=== PATIENT | female | born 1975 | race Caucasian/White ===

== ENCOUNTER 2019-04-11 19:03 | Inpatient (IN) ==
[2019-04-11] MEDS ORDERED: NS 1,000 ML IV ONE ×2 (20:18→22:18)
[2019-04-11] MEDS ORDERED: TORADOL IV ONE (20:18)
[2019-04-11 20:41] LABS: BASO# 0.03 X1000 (0.0-0.2); BASO% 0.2 % (0.0-0.8); EOS# 0.15 X1000 (0.0-0.7); EOS% 1.1 % (0.0-10.0); HEMATOCRIT 41.7 % (37.0-47.0); HEMOGLOBIN 14.8 g/dL (12.0-16.0); IMM GRAN# 0.04 X1000 (0.0-0.04); IMM GRAN% 0.3 % (0.0-0.5); LYMPH# 3.21 X1000 (1.2-3.4); LYMPH% 23.7 % (20.5-51.1); MCH 33.7 PG (27-31); MCHC 35.5 g/dL (33-37); MONO# 0.93 X1000 (0.11-0.59); MONO% 6.9 % (1.7-9.3); MPV 12.3 FL (7.4-10.4); NEUT# 9.16 X1000 (1.4-6.5); NEUT% 67.8 % (42.2-75.2); PLT 219 X1000 (130-400); RBC 4.39 XMIL (4.2-5.4); RDW 12.1 % (11.5-14.5); WBC 13.52 X1000 (4.8-10.8)
[2019-04-11 21:06] LABS: AGAP 18; ALBUMIN 5.1 g/dL (3.5-5.0); ALKALINE PHOSPHATASE 73 U/L (32-104); BUN 9 mg/dL (8-22); CALCIUM 10.3 mg/dL (8.8-10.2); CHLORIDE 101 mmol/L (98-107); COSMO 281; CREATININE 0.8 mg/dL (0.5-0.9); ESTIMATED GFR > 60; GLUCOSE 226 mg/dL (70-104); GOT 20 U/L (10-30); GPT 28 U/L (10-36); POTASSIUM 3.8 mmol/L (3.5-5.1); SODIUM 138 mmol/L (136-145); TCO2 20 mmol/L (25-35); TOTAL PROTEIN 7.8 g/dL (6.3-8.3)
[2019-04-11 21:15] LABS: BILIRUBIN URINE NEGATIVE (NEGATIVE); BLOOD URINE NEGATIVE (NEGATIVE); CLARITY CLEAR (CLEAR); COLOR YELLOW; GLUCOSE URINE NEGATIVE (NEGATIVE); KETONE URINE NEGATIVE (NEGATIVE); LEUKOCYTES URINE NEGATIVE (NEGATIVE); NITRITE URINE NEGATIVE (NEGATIVE); PH URINE 6.5; PROTEIN URINE NEGATIVE (NEGATIVE); SP GRAVITY URINE 1.005; UROBILINOGEN URINE NORMAL
[2019-04-11 21:16] LABS: URINE BACTERIA NEGATIVE /HFP; URINE EPITHELIAL CELLS <10 /HPF (<10); URINE RBC <10 /HPF (<10); URINE SOURCE CLEAN CATCH; URINE WBC <10 /HPF (<10)
[2019-04-11] MEDS ORDERED: CLINDAMYCIN 600 MG/D5W 600 MG/50 ML IVPB IV ONE (21:24)
--- NOTE | 2019-04-11 21:25 | PROVIDER DOCUMENTATION ---
This chart was entered by Cony Torrez Scribe, acting as scribe for Bryan Maya MD. HPI-General Adult - General Chief Complaint: Facial Pain Stated Complaint: FACE SWELLING Time Seen by Provider: 04/11/19 19:52 Source: patient Allergies/Adverse Reactions: Patient Allergies Allergy/AdvReac Type Severity Reaction Status Date / Time Sulfa (Sulfonamide Allergy SWELLING Verified 03/25/19 19:12 Antibiotics) [Sulfa(Sulfonamide Antibiotics)] Home Medications: Home Medication List Medication Instructions Recorded Confirmed Last Taken Type Atenolol 50 mg PO DAILY 02/26/12 04/11/19 04/11/19 History Fluticasone 50 Mcg Nasal [place] 2 spray JOSELIN DAILY #1 bottle 06/22/17 04/11/19 Unknown Rx [Flonase] Albuterol Sulfate 2.5 mg IH Q4H PRN PRN #30 vial.neb 06/20/18 04/11/19 Unknown Rx Loratadine [Claritin] 10 mg PO DAILY #20 cap 03/25/19 04/11/19 04/11/19 Rx Tizanidine [Zanaflex] 4 mg PO BID 03/25/19 04/11/19 04/11/19 History Alprazolam 1 mg PO 04/11/19 04/11/19 History - History of Present Illness -Gen Adult Nature of Presenting Problems: Pt is a 44 yof who presents to the ED with a complaint of facial pain. Pt states that she cannot eat due to the swelling on the left side of her face. Pt reports that the swelling began yesterday evening. Pt reports fever, ear pain, and chills. Pt reports lack of sleep due to pain. Pt denies nausea, vomiting, and dizziness. Location of Pain/Injury: reports: face (left side), back (lower right) Pain Radiation: reports: no radiation Quality of Pain: reports: aching Severity: reports: moderate Onset/Duration: reports: 24 hours ago Timing: reports: still present, getting worse Context/Activities at Onset: reports: none Modifying Factors: improves with: nothing Associated Symptoms: reports: back/neck pain (lower right back , left side of neck), EENT symptoms (left ear pain), fever/chills, loss of appetite Similar Symptoms Previously?: No Recently seen or treated by another doctor?: Yes Review of Systems - Adult - REVIEW OF SYSTEMS - ADULT Constitutional: reports: see HPI, chills, fever Eyes: reports: no symptoms reported Ears, Nose, Mouth & Throat: reports: ear pain (left ear), other (facial swelling pain around the ear neck pain) Cardiovascular: reports: no symptoms reported Respiratory: reports: no symptoms reported Gastrointestinal: reports: no symptoms reported Genitourinary: reports: no symptoms reported Musculoskeletal: reports: back pain (lower right), neck pain Integumentary: reports: no symptoms reported Neurological: reports: no symptoms reported Psychiatric: reports: no symptoms reported Endocrine: reports: no symptoms reported Hematologic/Lymphatic: reports: no symptoms reported Allergic/Immunologic: reports: no symptoms reported All Other Systems: Reviewed and Negative Past History - Adult - PAST MEDICAL HISTORY-ADULT Review of Records: reports: Old Records Reviewed, Nursing Assessment Review, Medications Reviewed, Social history reviewed & non-contributory. Major Childhood Illnesses: reports: denies history Cardiovascular: reports: HTN Respiratory: reports: asthma Gastrointestinal: reports: denies history Obstetrical/Gynecological: reports: denies history Genitourinary: reports: denies history Musculoskeletal: reports: denies history Neurological: reports: denies history Psychiatric: reports: anxiety, depression Endocrine/Immune: reports: denies history Other Conditions: reports: denies history - PRIOR SURGERIES/PROCEDURES Surgical/Procedure History: reports: appendectomy, hysterectomy, other (tubal ligation) - IMMUNIZATION STATUS Childhood Immunizations: See Nurse Assessment Flu Vaccine: See Nurse Assessment - FAMILY HISTORY Family History: reviewed, not pertinent - SOCIAL HISTORY Smoking: cigarettes, less than 1 pack/day Provider spent 3-5 mins advising pt. on dangers of tobacco.: Discussed manners to quit use, and f/u contacts for add'l counseling. Substance Use: denies Alcohol Use Frequency: rarely Living Situation: family Physical Exam-General - PHYSICAL EXAM-ADULT Initial Vital Signs Reviewed: Yes - CONSTITUTIONAL General Appearance: alert. negative: lethargic, slow to respond - EYES Eyes: PERRL/EOMI, sunken eyes. negative: sclera injected, scleral icterus - HEAD, EARS, NOSE, MOUTH & THROAT HENMT: normocephalic/atraumatic, moist mucous membranes, other (left parotid gland stensen duct tender and opening can be seen but no discharge). negative: normal ENT inspection - NECK Neck: non-tender - RESPIRATORY Respiratory: chest non-tender, lungs clear, normal breath sounds. negative: crackles, rhonchi, wheezing - CARDIOVASCULAR Cardiovascular: normal peripheral pulses, regular rate, rhythm, no edema, no gallop, no murmur, bradycardia - GASTROINTESTINAL (ABDOMEN) Abdominal Exam: normal bowel sounds, non tender, soft. negative: guarding, rebound - MUSCULOSKELETAL Back Exam: no CVA tenderness, other (right lower side tenderness) Extremity: normal range of motion, non-tender, normal gait, normal inspection - SKIN Integumentary: normal color, normal turgor, warm/dry. negative: ecchymosis, erythema - NEUROLOGIC Neurologic: grossly normal - PSYCHIATRIC Psych/Mental Status: normal mood/affect, normal thought content, normal thought process, oriented x 3 Progress - PLAN OF CARE/RESULTS Progress/Plan/Lab Results: Vital Signs - 8 hr 04/11/19 19:21 Temperature 99.5 F Pulse Rate 100 H Respiratory Rate 18 Blood Pressure 133/94 O2 Sat by Pulse Oximetry 96 Laboratory Results - last 24 hr 04/11/19 19:30 Group A Strep Rapid NEGATIVE Orders Category Date Time Status CT NECK W/CONTRAST [CT] Stat Exams 04/11/19 20:11 Ordered BLOOD CULTURE [BLDCUL] Stat Lab 04/11/19 20:17 Uncollected CBC WITH ELECTRONIC DIFF [HEME] Stat Lab 04/11/19 20:16 Uncollected CMP [COMPREHENSIVE METABOLIC PANEL] [CHEM] Stat Lab 04/11/19 20:16 Uncollected LACTATE, PLASMA [CHEM] Stat Lab 04/11/19 20:17 Uncollected UA NIMS W/REFLEX CULT PL [URINALYSIS] Stat Lab 04/11/19 20:20 Uncollected strep [DIRECT STREP PL] Stat Lab 04/11/19 19:30 Completed 0.9% Sodium Chloride Inj [Ns] 1,000 ml Med 04/11/19 20:18 Active IV 999 mls/hr Ketorolac [Toradol] Med 04/11/19 20:18 Discontinued 30 mg IV NOW ONE Result Diagrams: 04/11/19 20:28 04/11/19 20:28 - CONSULTS/PCP/HOSPITALIST Notification #1 *Consult/PCP/Hospitalist*: D/W Dr Rodriguez Time Discussed: 22:14 Consult Disposition: Admit (recommended zosyn, toradol 30 mg iv Q6 and IVF's) Departure - Departure Date of Disposition Decision: 04/11/19 Time of Disposition Decision: 22:16 DIAGNOSIS: Parotitis, acute Disposition: ADMITTED INPATIENT 09 Certified Medical Emergency: Emergent Condition: Stable Referrals and Follow-Ups: Erik Yang MD [Primary Care Provider] - - Critical Care Note This patient required my direct & personal management of CC.: No Attestation - Physician/ DEVORA Attestation Patient care was provided by Advanced Practice Provider:: No The physician spent face to face time with patient:: Yes Advanced Practice Provider documentation review:: Supervising physician onsite and consulted in the evaluation and care of this patient. The physician did have a face to face encounter with the patient. This chart was documented by the indicated scribe, (Cony Torrez Scribe) and accurately reflects the services I performed and decisions made by me, Bryan Maya MD, as attested by the provider's signature.
--- NOTE | 2019-04-11 21:48 | Diag Imaging Result Doc PS360 ---
EXAM: CT NECK W/CONTRAST HISTORY: L parotid swelling TECHNIQUE: CT neck with intravenous contrast COMPARISON: None. FINDINGS: The left parotid gland is mildly larger than the right. Minimal inflammation in the adjacent subcutaneous fat. The submandibular glands are symmetric. No mass. No sinus opacification and no air-fluid levels. No precervical soft tissue swelling. Normal thyroid gland and larynx. There are small lymph nodes scattered in the neck. IMPRESSION: Inflammation of the left parotid gland This exam was performed using automated exposure control, adjustment of mA or kV according to patient size, and/or use of iterative reconstruction technique. Electronically signed by Rl Alvarez 04/11/2019 9:45 PM
[2019-04-11] MEDS ORDERED: PHENERGAN IV ONE (22:02)
[2019-04-11] MEDS ORDERED: SODIUM CHLORIDE 0.9% INJ ONE (22:02)
[2019-04-11] MEDS ORDERED: ZOSYN 3.375 GM in NS 50 ML IV ONE (22:18)
[2019-04-11] MEDS ORDERED: NS 1,000 ML ONE (22:38)
[2019-04-11] MEDS: ZOSYN 3.375 GM in NS 50 ML IV SCH (23:49)
[2019-04-12] MEDS ORDERED: FLU VACCINE IM ONE (00:08)
[2019-04-12] MEDS ORDERED: PNEUMOVAX 23 IM ONE (00:11)
[2019-04-12] MEDS: NICODERM PATCH TD PRN (00:27)
[2019-04-12] MEDS: TORADOL IV PRN ×2 (02:21→08:57)
[2019-04-12] MEDS: ZOSYN 3.375 GM in NS 50 ML IV SCH ×4 (04:21→22:35)
[2019-04-12] MEDS ORDERED: VANCOMYCIN IV PER PHARMACY MISC SCH (09:15)
[2019-04-12] MEDS ORDERED: ZOFRAN IV PRN (09:15)
[2019-04-12] MEDS ORDERED: TYLENOL PO PRN (09:15)
[2019-04-12] MEDS ORDERED: NS 1,000 ML IV ONE (09:20)
[2019-04-12] MEDS ORDERED: ALBUTEROL NEB INH PRN (09:20)
[2019-04-12] MEDS ORDERED: VANCOMYCIN 1,600 MG in NS 250 ML IV ONE (10:00)
[2019-04-12] MEDS: FLONASE NAS SCH (10:43)
[2019-04-12] MEDS: LOVENOX SUBQ SCH (10:46)
[2019-04-12] MEDS: XANAX PO SCH ×3 (10:46→20:49)
[2019-04-12] MEDS: NS 1,000 ML IV SCH ×3 (10:46→22:36)
[2019-04-12] MEDS: CLARITIN PO SCH (10:46)
[2019-04-12] MEDS: TENORMIN PO SCH (10:46)
[2019-04-12] MEDS: ZANAFLEX PO SCH ×2 (10:47→20:50)
[2019-04-12 12:06] LABS: UR AMPHETAMINES QUAL NONE DETECTED (NONE DETECT); UR BARBITUATES QUAL NONE DETECTED (NONE DETECT); UR BENZODIAZEPIN QUAL PRESUMPTIVE POSITIVE (NONE DETECT); UR CANNABINOIDS QUAL NONE DETECTED (NONE DETECT); UR COCAINE QUAL NONE DETECTED (NONE DETECT); UR METHADONE QUAL NONE DETECTED (NONE DETECT); UR METHAMPHETAMINE QUAL NONE DETECTED (NONE DETECT); UR OPIATES QUAL NONE DETECTED (NONE DETECT); UR OXYCODONE QUAL NONE DETECTED (NONE DETECT); UR PCP QUAL NONE DETECTED (NONE DETECT); UR PROPOXYPHENE QUAL NONE DETECTED (NONE DETECT); UR TCA QUAL NONE DETECTED (NONE DETECT)
--- NOTE | 2019-04-12 14:41 | HISTORY AND PHYSICAL ---
PRIMARY CARE PROVIDER: Dr. Yang. CHIEF COMPLAINT: Left jaw pain. HISTORY OF PRESENT ILLNESS: Ms. Kanika Mckeon is a 44-year-old, female with a medical history of asthma, COPD, bronchitis, hypertension, anxiety, depression, arteriosclerotic heart disease, full teeth extraction, who also had a history of left parotid gland infection around 2 years ago where she was treated with antibiotics and pain medication. Now presents with swelling in the left jaw/neck area for 2 days. Left jaw, neck up to the ear is swollen. It is very tender to palpation. It is firm. Pain is 7/10 with pain that shoots into the ear and into the eye. She states it feels worse when she tries to eat. She presented to the emergency department here at [facility]. Head and neck CT that was performed which showed inflammation of the left parotid gland. Her white blood cell came back at 13,000. She has elevation in her lactate. She also has hyperglycemia. She was admitted for further treatment. Antibiotics consist of vancomycin and Zosyn. She did get a dose of clindamycin in the ER. PAST MEDICAL HISTORY: 1. Asthma/COPD. 2. Chronic bronchitis. 3. Hypertension. 4. Anxiety. 5. Chronic muscle spasms. 6. Depression. 7. Arteriosclerotic heart disease. 8. Degenerative bone disease. 9. Osteoarthritis. 10. Full teeth extraction 14+ years ago. 11. Gallstones. 12. 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 13. Parotid gland infection around 2 years ago. 14. Seasonal allergies. 15. Hypertriglyceridemia. 16. Newly diagnosed diabetes mellitus type 2. 17. In the past, she has had pancreatitis. SURGICAL HISTORY: 1. Full teeth extraction. 2. Total hysterectomy. 3. Appendectomy. SOCIAL HISTORY: One pack per day smoker for 20+ years. Drinks alcohol twice a year. No illicit drug use. Lives at home with her . FAMILY HISTORY: Father at 46 with an DC. Mother had heart disease, paternal grandmother had a stroke. Paternal grandfather had heart attack, stroke, and Parkinson's. Maternal grandmother stroke, heart attack, and Parkinson's. ALLERGIES: Sulfa. HOME MEDICATIONS: 1. Xanax 1 mg p.o. t.i.d. 2. Atenolol 50 mg p.o. daily. 3. Zanaflex 4 mg p.o. twice daily. 4. Albuterol every 4 hours p.r.n. 5. Loratadine 10 mg p.o. daily. 6. Flonase nasal daily. REVIEW OF SYSTEMS: Fourteen point review of systems are complete and all are negative except for those mentioned above in the HPI. PHYSICAL EXAMINATION: VITAL SIGNS: Temperature 97.4 degrees, heart rate 73, respiratory rate 16, blood pressure 132/72, O2 saturation 100% on room air. GENERAL: Ms. Kanika Mckeon is a 44-year-old, female. She is in no acute distress. She is able answer questions appropriately. HEENT: Atraumatic and normocephalic except for she does have swelling along the left side of her face into the jaw and into the neck. Pupils equal, round, and reactive to light. Extraocular movements intact. Mucous membranes are moist. She is without teeth. Oral airway is clean but swollen. NECK: Trachea midline. Swelling in the left side of the neck. CARDIOVASCULAR: S1, S2. Regular rate and rhythm. No rubs, gallops, or murmurs. No lower extremity edema. There are +2 dorsalis and radial pulses. Negative JVD or carotid bruits. PULMONARY: Clear to auscultate bilateral breath sounds. No accessory muscle use or work of breathing noted. GI: Soft, nontender, nondistended. Positive bowel sounds x4. EXTREMITIES: Moves all extremities equally with full range of motion. NEUROLOGIC: A and O x3. Follows commands. Sensory is intact. SKIN: Warm, dry, intact. LABORATORY DATA: White blood cells 13,000, hemoglobin 14, hematocrit 41, platelet count 219,000. Sodium 138, potassium 3.8, BUN 9, creatinine 0.8, glucose 226, calcium is 10. Bilirubin 0.50, AST 20, ALT 28, albumin 5.1. Serum lactate 3.6 on admission. It was up to 4.3 after that. Urinalysis negative. Urine drug screen positive for benzodiazepines. Strep negative. She had a hemoglobin A1c on March 14 with an A1c of 6. Her triglycerides on 03/14/2019 were 533, total cholesterol 155. IMAGING: Neck CT, inflammation of the left parotid gland. ASSESSMENT AND PLAN: 1. Sepsis, likely secondary to parotid gland infection. She is getting fluids and broad-spectrum antibiotics. 2. Left parotid gland inflammation, infection, parotiditis. Again, she is on broad-spectrum antibiotics and getting intravenous fluids. She does state that eating makes it worse but wants to continue on a regular diet. She is requesting for some pain medicine for that. We will do a lidocaine patch because she wanted something topical but she also has [place] ordered if she needs it. 3. Anxiety. Continue Xanax. 4. Seasonal allergies. Continue Flonase and Claritin. 5. Hypertension. Continue atenolol. 6. Newly diagnosed diabetes mellitus type 2. Hemoglobin A1c was 6.2 last month. We will do pattern blood glucoses, sliding scale insulin, and a diabetic diet. She will probably need something oral when she goes home. 7. Newly diagnosed hypertriglyceridemia. Her triglyceride levels were over 500. Total cholesterol levels were normal. Start her on fenofibrate. 8. Reported history of arteriosclerotic heart disease. No interventions noted. Again, she probably needs to be on aspirin and continue on the fenofibrate. We will add some aspirin. 9. Deep venous thrombosis prophylaxis. Lovenox. 10. History of reported asthma, chronic obstructive pulmonary disease, and chronic bronchitis. She had antibiotics. She was recently treated with doxycycline and Medrol Dosepak which she finished up a week ago. Apparently, she was taking that for her sinusitis as well. 11. Tobacco abuse. Cessation discussed. Dictated by LILI Treviño for Ronald Head MD Addendum: Patient seen and examined by myself. Agree with LILI note. It reflects my assessment and plan. Patient is being admitted to hospital for parotid gland infection. Will continue with Zosyn and Toradol. Will monitor patient closely. cc: LILI Treviño MD MTDD
[2019-04-12] MEDS: OFIRMEV 1000 MG/ISOTONIC SOLN 1,000 MG/100 ML BOTTLE IV SCH ×2 (14:46→20:45)
[2019-04-12] MEDS: PHENERGAN IV PRN (14:46)
[2019-04-12] MEDS: SODIUM CHLORIDE 0.9% INJ PRN (14:47)
[2019-04-12] MEDS: LIDODERM TOP SCH (14:53)
[2019-04-12] MEDS: TORADOL IV SCH ×2 (15:27→20:49)
[2019-04-12] MEDS: NORCO-7.5 PO PRN (20:49)
[2019-04-12] MEDS: AMBIEN PO SCH (20:49)
[2019-04-12] MEDS: TRICOR PO SCH (20:49)
[2019-04-12] MEDS: HUMULIN R (PARKWAY) SUBQ SCH (22:37)
[2019-04-13] MEDS: OFIRMEV 1000 MG/ISOTONIC SOLN 1,000 MG/100 ML BOTTLE IV SCH ×4 (02:49→21:02)
[2019-04-13] MEDS: TORADOL IV SCH ×4 (02:50→21:07)
[2019-04-13] MEDS: ZOSYN 3.375 GM in NS 50 ML IV SCH ×4 (04:38→21:47)
[2019-04-13] MEDS: VANCOMYCIN 1,200 MG in NS 250 ML IV SCH ×2 (05:16→23:43)
[2019-04-13 06:16] LABS: BASO# 0.02 X1000 (0.0-0.2); BASO% 0.3 % (0.0-0.8); EOS# 0.14 X1000 (0.0-0.7); EOS% 2.3 % (0.0-10.0); HEMATOCRIT 32.5 % (37.0-47.0); HEMOGLOBIN 10.9 g/dL (12.0-16.0); IMM GRAN# 0.01 X1000 (0.0-0.04); IMM GRAN% 0.2 % (0.0-0.5); LYMPH# 2.02 X1000 (1.2-3.4); LYMPH% 33.4 % (20.5-51.1); MCH 32.7 PG (27-31); MCHC 33.5 g/dL (33-37); MCV 97.6 FL (81-99); MONO# 0.59 X1000 (0.11-0.59); MONO% 9.8 % (1.7-9.3); MPV 12.1 FL (7.4-10.4); NEUT# 3.27 X1000 (1.4-6.5); PLT 145 X1000 (130-400); RBC 3.33 XMIL (4.2-5.4); RDW 11.9 % (11.5-14.5); WBC 6.05 X1000 (4.8-10.8)
[2019-04-13] MEDS: PHENERGAN IV PRN ×2 (06:55→18:58)
[2019-04-13] MEDS: NORCO-7.5 PO PRN ×2 (06:56→16:43)
[2019-04-13] MEDS: NICODERM PATCH TD PRN (06:57)
[2019-04-13] MEDS: HUMULIN R (PARKWAY) SUBQ SCH ×5 (06:57→21:05)
[2019-04-13 07:35] LABS: AGAP 12; ALBUMIN 3.6 g/dL (3.5-5.0); ALKALINE PHOSPHATASE 63 U/L (32-104); BUN 8 mg/dL (8-22); CALCIUM 8.5 mg/dL (8.8-10.2); CHLORIDE 110 mmol/L (98-107); COSMO 287; CREATININE 0.7 mg/dL (0.5-0.9); ESTIMATED GFR > 60; GLUCOSE 240 mg/dL (70-104); GOT 13 U/L (10-30); GPT 18 U/L (10-36); MAGNESIUM 1.3 mg/dL (1.5-2.7); POTASSIUM 3.8 mmol/L (3.5-5.1); SODIUM 141 mmol/L (136-145); TCO2 19 mmol/L (25-35); TOTAL PROTEIN 5.4 g/dL (6.3-8.3)
[2019-04-13] MEDS: LIDODERM TOP SCH (08:24)
[2019-04-13] MEDS: LOVENOX SUBQ SCH (08:24)
[2019-04-13] MEDS: FLONASE NAS SCH (08:25)
[2019-04-13] MEDS: ASPIRIN PO SCH (08:25)
[2019-04-13] MEDS: ZANAFLEX PO SCH ×2 (08:25→21:07)
[2019-04-13] MEDS: CLARITIN PO SCH (08:25)
[2019-04-13] MEDS: XANAX PO SCH ×3 (08:26→21:07)
[2019-04-13] MEDS: TENORMIN PO SCH (08:26)
[2019-04-13] MEDS: NS 1,000 ML IV SCH ×3 (08:27→16:33)
[2019-04-13] MEDS ORDERED: HALL'S COUGH LOZENGE MT PRN (12:02)
--- NOTE | 2019-04-13 13:20 | PROGRESS NOTE ---
DATE: 04/13/2019 SUBJECTIVE: Patient reports feeling better with less left parotid swelling. OBJECTIVE: Vital Signs: Temperature 97.8 degrees, heart rate 69, respiratory rate 20, blood pressure 136/77, and O2 saturation 100% on room air. General: This is a 44-year-old female lying in bed in no acute distress. HEENT: Head is normocephalic, nontraumatic. There is a left parotid swelling that is getting slightly better. Cardiovascular: S1, S2 heard. No murmurs, gallops, or rubs. Regular rate and rhythm. Respiratory: Clear bilaterally to auscultation. No work of breathing or using accessory muscles. Abdomen: Soft. Nontender to palpation. Bowel sounds present. No organomegaly. Extremities: No clubbing, cyanosis, or edema. Peripheral pulses present in both legs. Neurological: Patient is alert and oriented x3. Moves all 4 extremities. LABORATORY DATA: White cell count 6.05. BMP is okay. ASSESSMENT AND PLAN: 1. Sepsis secondary to parotid gland infection. Clinically, patient is doing better, less swelling noted, and also white cell count is back to normal. At this point, we will continue with the same management. 2. Anxiety disorder. We will continue with Xanax. 3. Hypertension. Blood pressure is under control. We will continue with the atenolol. 4. Diabetes mellitus type 2. We will continue with sliding scale insulin and Accu-Chek's before meals, and also at bedtime. 5. Disposition. If the patient clinically is doing better, we will let her go tomorrow. cc: Ronald Head MD
[2019-04-13] MEDS: SODIUM CHLORIDE 0.9% INJ PRN (18:58)
[2019-04-13] MEDS: TRICOR PO SCH (21:07)
[2019-04-13] MEDS: AMBIEN PO SCH (21:07)
[2019-04-14] MEDS: OFIRMEV 1000 MG/ISOTONIC SOLN 1,000 MG/100 ML BOTTLE IV SCH ×2 (03:52→10:19)
[2019-04-14] MEDS: ZOSYN 3.375 GM in NS 50 ML IV SCH ×2 (03:52→10:12)
[2019-04-14] MEDS: TORADOL IV SCH ×2 (03:52→10:13)
[2019-04-14] MEDS: NS 1,000 ML IV SCH ×2 (03:57→11:22)
[2019-04-14 06:26] LABS: BASO# 0.01 X1000 (0.0-0.2); BASO% 0.2 % (0.0-0.8); EOS# 0.12 X1000 (0.0-0.7); EOS% 2.3 % (0.0-10.0); HEMATOCRIT 31.1 % (37.0-47.0); HEMOGLOBIN 10.5 g/dL (12.0-16.0); LYMPH# 1.72 X1000 (1.2-3.4); LYMPH% 32.6 % (20.5-51.1); MCH 32.5 PG (27-31); MCHC 33.8 g/dL (33-37); MCV 96.3 FL (81-99); MONO# 0.47 X1000 (0.11-0.59); MONO% 8.9 % (1.7-9.3); MPV 11.7 FL (7.4-10.4); NEUT# 2.96 X1000 (1.4-6.5); PLT 143 X1000 (130-400); RBC 3.23 XMIL (4.2-5.4); RDW 11.6 % (11.5-14.5); WBC 5.28 X1000 (4.8-10.8)
[2019-04-14] MEDS: HUMULIN R (PARKWAY) SUBQ SCH ×2 (06:28→11:23)
[2019-04-14 06:55] LABS: AGAP 9; ALBUMIN 3.4 g/dL (3.5-5.0); ALKALINE PHOSPHATASE 57 U/L (32-104); BUN 18 mg/dL (8-22); CALCIUM 9.4 mg/dL (8.8-10.2); CHLORIDE 107 mmol/L (98-107); COSMO 288; CREATININE 0.9 mg/dL (0.5-0.9); ESTIMATED GFR > 60; GLUCOSE 278 mg/dL (70-104); GPT 22 U/L (10-36); MAGNESIUM 1.2 mg/dL (1.5-2.7); SODIUM 138 mmol/L (136-145); TCO2 22 mmol/L (25-35); TOTAL PROTEIN 5.3 g/dL (6.3-8.3)
[2019-04-14 06:57] LABS: GOT 12 U/L (10-30)
[2019-04-14 08:04] VITALS: BP 152/79
[2019-04-14] MEDS: LIDODERM TOP SCH (10:12)
[2019-04-14] MEDS: TENORMIN PO SCH (10:13)
[2019-04-14] MEDS: LOVENOX SUBQ SCH (10:13)
[2019-04-14] MEDS: ZANAFLEX PO SCH (10:13)
[2019-04-14] MEDS: XANAX PO SCH (10:13)
[2019-04-14] MEDS: ASPIRIN PO SCH (10:13)
[2019-04-14] MEDS: FLONASE NAS SCH (10:13)
[2019-04-14] MEDS: CLARITIN PO SCH (10:13)
[2019-04-14] MEDS: NORCO-7.5 PO PRN (10:14)
--- NOTE | 2019-04-15 06:30 | DISCHARGE SUMMARY ---
ADMISSION DATE: 04/11/2019 DISCHARGE DATE: 04/14/2019 ADMISSION DIAGNOSES: 1. Sepsis likely secondary to parotid gland infection. 2. Left parotid gland inflammation, infection, and parotiditis. 3. Anxiety number. 4. Seasonal allergies. 5. Hypertension. 6. Newly diagnosed diabetes mellitus type 2. 7. Newly diagnosed hypertriglyceridemia. 8. Reported history of arteriosclerotic heart disease. 9. History of reported asthma, chronic obstructive pulmonary disease, and chronic bronchitis. 10. Tobacco abuse cessation discussed. DISCHARGE DIAGNOSES: 1. Sepsis secondary to parotid gland infection. 2. Left parotiditis. 3. Anxiety disorder. 4. Hypertension. 5. Diabetes mellitus type 2. CONSULTATIONS: None. SURGERIES AND PROCEDURES: None. HOSPITAL COURSE: Ms. Kanika Mckeon is a 44-year-old female with a medical history of asthma, COPD, bronchitis, hypertension, anxiety, depression, and full teeth extraction, who has a history of left parotid gland infection around 2 years ago. She is now here with return of complaints of left jaw and neck pain for 2 days along with swelling, tender to palpate, firm, with pain 7/10 shooting into the ears and to the side of the eye. Eating was making it worse. Head and neck CT showed that there was inflammation of left [place] [address]. She had elevation in her lactate, and was treated for sepsis, hyperglycemia, and antibiotics consisted of vancomycin and Zosyn. Improvement in the swelling over the last 2 to 3 days, and she is stable for discharge home on Augmentin. She was also found to have a new diagnosis of diabetes, and we will start metformin. She also has a diagnosis of hypertriglyceridemia and has started fenofibrate. DISCHARGE VITAL SIGNS: Temperature 97.8 degrees, heart rate 66, respiratory rate 20, blood pressure 152/79, and O2 saturation 100% on room air. LABORATORY DATA: White blood cells 5000, hemoglobin 10, hematocrit 31, and platelet count 143,000. Sodium 138, potassium 4.0, BUN 18, creatinine 0.9, glucose 278, calcium 9.4, magnesium 1.2, bilirubin 0.40, AST 12, ALT 22, and albumin 3.4. Lactate she had was 3.6 and 4.3. Urine drug screen is positive for benzo's. Her group A strep was negative. MICROBIOLOGY: No blood culture. Bacterial infection. Throat culture was negative. PERTINENT IMAGING: Neck CT inflammation left parotid gland. Telemetry strip showed sinus rhythm. DISCHARGE MEDICATIONS: 1. Augmentin 875 mg p.o. every 12 hours. 2. Fenofibrate 145 mg p.o. nightly. 3. Aspirin 81 mg p.o. daily. 4. Metformin 500 mg p.o. daily. 5. Xanax 1 mg p.o. t.i.d. 6. Atenolol 50 mg p.o. daily. 7. Zanaflex 4 mg p.o. twice daily. 8. Albuterol inhaled every 4 hours. 9. Flonase 2 sprays nasally daily. 10. [place] 7.5 1 tab p.o. every 4 hours p.r.n. DISCHARGE DIET: Diabetic. DISCHARGE ACTIVITY: As tolerated. DISCHARGE PHYSICIAN FOLLOW UP: Dr. Yang. DISCHARGE INSTRUCTIONS: If her condition changes, contact physician and/or return to the emergency department. Changes may include, but not limited to shortness of breath, increased fatigue, excessive bleeding, unexplained weight loss or gain, unmanageable pain, signs or symptoms of infection. DISCHARGE DISPOSITION: Home. Dictated by LILI Treviño for Ronald Head MD Addendum: patient seen and examined by myself. Agree with LILI note. It reflects my assessment and plan. Patient is being discharged in stable condition. Will be seen by PCP in a week. cc: LILI Treviño MD [facility]
== END 2019-04-14 12:40 | disposition home or self-care (01) | DRG 872 ==
LOC: P.ED 19:03 → P.MEDSURG 22:58
PROVIDERS: ATTEND Internal Medicine